=== PATIENT | male | born 1985 | race Two or more races ===

== ENCOUNTER 2018-06-24 17:00 | Emergency (ER) | payer OTHER ==
[~2018-06-24] VITALS: Ht 172.7 cm; Wt 86.2 kg
[~2018-06-24 17:00] MED LIST: HYDR-548 PO
--- NOTE | 2018-06-24 18:34 | NUR ---
Patient discharged to home in stable conditon. pt left before written dci printed.pt walks in steady gait.
== END 2018-06-24 18:34 | disposition home or self-care (01) ==
LOC: ER 17:02
DX: D17.79 Benign lipomatous neoplasm of other sites (principal); M62.48 Contracture of muscle, other site; E78.00 Pure hypercholesterolemia, unspecified; F17.200 Nicotine dependence, unspecified, uncomplicated
CPT/HCPCS: 99281; A4663

== ENCOUNTER 2021-10-24 16:07 | Emergency (ER) | payer SELFPAY ==
--- NOTE | 2021-10-24 16:14 | NUR ---
Pt left w/o being triaged.
== END 2021-10-24 16:16 | disposition left against medical advice (07) ==
LOC: ER 16:09
DX: Z53.21 Procedure and treatment not carried out due to patient leaving prior to being seen by health care provider (principal)